=== PATIENT | female | born 1970 | race Native Hawaiian/Other Pacific Islander ===

== ENCOUNTER 2018-11-23 11:33 | Emergency (ER) | payer BC, MEDICARE ==
--- NOTE | 2018-11-23 11:50 | Emergency Department Report ---
Blank Doc - Documentation Documentation: This is a 48-year-old female that presents with acute on chronic intermittent lower back pain. Denies any injuries. This initial assessment/diagnostic orders/clinical plan/treatment(s) is/are subject to change based on patient's health status, clinical progression and re-assessment by fellow clinical providers in the ED. Further treatment and workup at subsequent clinical providers discretion. Patient/guardians urged not to elope from the ED as their condition may be serious if not clinically assessed and managed. Initial orders include: 1- Patient sent to [facility] for further evaluation and treatment 2- Xray
--- NOTE | 2018-11-23 12:26 | XRay Report ---
AP AND LATERAL LUMBOSACRAL SPINE: History: Low back pain. The vertebral bodies are well mineralized and normal in alignment and vertebral height with well preserved interspace distances. The visualized portions of the posterior elements are normal. IMPRESSION: Lumbar spine within normal limits.
[2018-11-23] MEDS ORDERED: TORADOL IM ONE (12:30)
[2018-11-23] MEDS ORDERED: CATAPRES PO ONE (12:39)
--- NOTE | 2018-11-23 12:41 | Emergency Department Report ---
ED Back Pain/Injury HPI - General Chief Complaint: Back Pain/Injury Stated Complaint: BACK PAIN Time Seen by Provider: 11/23/18 11:48 Source: patient Limitations: No Limitations - History of Present Illness Initial Comments: Patient is a 48-year-old females who has a past medical history of CVA and Crohn's disease who is presenting with 1 week of right lower back pain. Patient states this shocking sensation that is very sharp and sometimes radiates down through her right hip and buttock to the right lower extremity. Patient denies any trauma or heavy lifting that she can think of. Patient also states has been no focal neurological deficits as far as weakness or numbness she denies any chest pain shortness of breath fevers chills nausea vomiting. Patient has no bowel or bladder dysfunction. Patient states the pain is 8 out of 10 in severity is worse with movement. Patient states she saw orthopedic doctor today and was sent to the emergency department because of the history of stroke. - Related Data Previous Rx's Medication Instructions Recorded Last Taken Type Ketorolac [Toradol] 10 mg PO Q6H PRN #12 tablet 11/23/18 Unknown Rx methOCARBAMOL [Robaxin TAB] 500 mg PO Q6H PRN #14 tablet 11/23/18 Unknown Rx traMADol [Ultram] 50 mg PO Q6HR PRN #12 tablet 11/23/18 Unknown Rx Allergies Allergy/AdvReac Type Severity Reaction Status Date / Time No Known Allergies Allergy Unverified 11/23/18 11:44 ED Review of Systems ROS: Stated complaint: BACK PAIN Other details as noted in HPI Comment: All other systems reviewed and negative ED Past Medical Hx - Past Medical History Chron's ED Back Pain Physical Exam - Exam General: Vital signs noted. No distress. Alert and acting appropriately. Back/Abdomen: Yes Perilumbar Tenderness (right sided), Yes Sacroiliac Tenderness, No Abdominal Tenderness, No Perithoracic Tenderness, No Flank Tenderness, No Straight Leg Raise Pain Neuro: Yes Normal Sensation, Yes Normal DTR's, Yes Normal Gait, No Motor Weakness ED Course Vital Signs 11/23/18 11:48 Temperature 98.3 F Pulse Rate 103 H Respiratory 18 Rate Blood Pressure 175/133 O2 Sat by Pulse 97 Oximetry ED Medical Decision Making - Medical Decision Making Patient with very classic sciatica symptoms. Patient sent in because her blood pressure was elevated at the orthopedic physician. Patient has no evidence of any end organ damage his chest pain free and has no shortness of breath or focal neurological deficits. Patient's blood pressure likely elevated secondary to pain. Patient does have a history of hypertension. Patient was given this for symptomatically relief as well as 0.1 of Catap[place] and the patient will be discharged home. Critical care attestation.: If time is entered above; I have spent that time in minutes in the direct care of this critically ill patient, excluding procedure time. ED Disposition Clinical Impression: Hypertensive urgency Sciatica Qualifiers: Laterality: right Qualified Code(s): M54.31 - Sciatica, right side Disposition: DC-01 TO HOME OR SELFCARE Is pt being admited?: No Does the pt Need Aspirin: No Condition: Stable Instructions: Lumbar Radiculopathy (ED), Hypertension (ED) Referrals: GAUTAM CAMILO MD [Primary Care Provider] - 3-5 Days LUIS ENRIQUE BARCENAS MD [Staff Physician] - 3-5 Days Time of Disposition: 12:41
[2018-11-23 13:37] VITALS: BP 177/116
== END 2018-11-23 13:38 | disposition home or self-care (01) ==
LOC: ED 11:33
DX: I16.0 Hypertensive urgency (principal); M54.41 Lumbago with sciatica, right side
CPT/HCPCS: 72100; 96372; 99283; J1885

== ENCOUNTER 2021-02-05 09:20 | Emergency (ER) | payer BC, MEDICARE ==
[2021-02-05] MEDS ORDERED: diphenhydrAMINE 25 MG CAP PO ONE (10:38)
[2021-02-05] MEDS ORDERED: METOCLOPRAMIDE 10 MG TAB PO ONE (10:38)
[2021-02-05] MEDS ORDERED: BUTALB/ACETAMINOPHEN/CAFFEINE TAB PO ONE (10:38)
[2021-02-05] MEDS ORDERED: CYCLOBENZAPRINE 10 MG TAB PO ONE (10:41)
--- NOTE | 2021-02-05 10:46 | Emergency Department Report ---
ED Headache HPI - General Chief Complaint: Headache Stated Complaint: PAIN IN BACK OF HEAD AND LEFT EAR Time Seen by Provider: 02/05/21 10:38 - History of Present Illness Initial Comments: Patient is a 50-year-old female presents emergency room complaints of left-sided neck pain for approximately 12 days. she states that the neck pain is causing her to have a headache. 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 She denies any fall or injury. She states that she has pain with rotation of the neck. She denies any pain with flexion or extension and denies any neck stiffness. Patient states that she tried taking Tylenol and doing ice pack and heating pad without much relief. She denies any fever, vision changes, numbness, weakness, speech disturbance, gait disturbance. Past medical history of ulcerative colitis and GERD. She reports that she has an allergy to penicillin. Allergies/Adverse Reactions: Allergies No Known Allergies Allergy (Verified 02/05/21 09:45) Home Medications: Ambulatory Orders Ketorolac [Toradol] 10 mg PO Q6H PRN #12 tablet 11/23/18 methOCARBAMOL [Robaxin TAB] 500 mg PO Q6H PRN #14 tablet 11/23/18 traMADoL [Ultram] 50 mg PO Q6HR PRN #12 tablet 11/23/18 Acetaminophen/Codeine [Tylenol /Codeine # 3 tab] 1 tab PO Q6H PRN #12 tab 02/05/21 Menthol/Camphor [[place] Ointment] 1 applicatio TP BID #18 oint...g. 02/05/21 methOCARBAMOL [Robaxin TAB] 500 mg PO BID PRN #20 tab 02/05/21 ED Review of Systems ROS: Stated complaint: PAIN IN BACK OF HEAD AND LEFT EAR Other details as noted in HPI Comment: All other systems reviewed and negative ED Past Medical Hx - Past Medical History Hx CVA: Yes Additional medical history: Chron's /UC - Surgical History Additional Surgical History: jaw BALLON TO ARTERY - Social History Smoking Status: Never Smoker Substance Use Type: None - Medications Home Medications: Home Medications Medication Instructions Recorded Confirmed Last Taken Type Ketorolac [Toradol] 10 mg PO Q6H PRN #12 tablet 11/23/18 Unknown Rx methOCARBAMOL [Robaxin TAB] 500 mg PO Q6H PRN #14 tablet 11/23/18 Unknown Rx traMADoL [Ultram] 50 mg PO Q6HR PRN #12 tablet 11/23/18 Unknown Rx Acetaminophen/Codeine [Tylenol 1 tab PO Q6H PRN #12 tab 02/05/21 Unknown Rx /Codeine # 3 tab] Menthol/Camphor [[place] 1 applicatio TP BID #18 oint...g. 02/05/21 Unknown Rx Ointment] methOCARBAMOL [Robaxin TAB] 500 mg PO BID PRN #20 tab 02/05/21 Unknown Rx ED Physical Exam - General Limitations: No Limitations General appearance: alert, in no apparent distress - Head Head exam: Present: atraumatic, normocephalic - Eye Eye exam: Present: normal appearance, PERRL, EOMI. Absent: conjunctival injection, nystagmus, periorbital swelling, periorbital tenderness Pupils: Present: normal accommodation - ENT ENT exam: Present: mucous membranes moist - Neck Neck exam: Present: normal inspection, tenderness (left sided paraspinal C-spine ttp, no step offs, no deformities, no skin changes ), full ROM. Absent: meningismus - Respiratory Respiratory exam: Present: normal lung sounds bilaterally. Absent: respiratory distress, wheezes, rales, rhonchi, stridor, chest wall tenderness, accessory muscle use, decreased breath sounds, prolonged expiratory - Cardiovascular Cardiovascular Exam: Present: regular rate, normal rhythm, normal heart sounds. Absent: systolic murmur, diastolic murmur, rubs, gallop - Back Exam Back exam: Present: normal inspection, full ROM. Absent: paraspinal tenderness, vertebral tenderness - Neurological Exam Neurological exam: Present: alert, oriented X3, CN II-XII intact, normal gait. Absent: motor sensory deficit - Psychiatric Psychiatric exam: Present: normal affect, normal mood - Skin Skin exam: Present: warm, dry, intact ED Course Vital Signs 02/05/21 02/05/21 02/05/21 09:44 09:45 13:53 Temperature 98 F 97.8 F Pulse Rate 88 74 Respiratory 20 16 Rate Blood Pressure 115/73 Blood Pressure 113/76 [Left] O2 Sat by Pulse 96 100 Oximetry ED Medical Decision Making - Lab Data Vital Signs 08/25/21 08/25/21 08/25/21 09:44 09:45 13:53 Temperature 98 F 97.8 F Pulse Rate 88 74 Respiratory 20 16 Rate Blood Pressure 115/73 Blood Pressure 113/76 [Left] O2 Sat by Pulse 96 100 Oximetry - Medical Decision Making Patient is a 50-year-old female presents emergency room complaints of left-sided neck pain for approximately 12 days. she states that the neck pain is causing her to have a headache. 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 She denies any fall or injury. She states that she has pain with rotation of the neck. She denies any pain with flexion or extension and denies any neck stiffness. Patient states that she tried taking Tylenol and doing ice pack and heating pad without much relief. She denies any fever, vision changes, numbness, weakness, speech disturbance, gait disturbance. Past medical history of ulcerative colitis and GERD. She reports that she has an allergy to penicillin. Vitals are normal. On exam:left sided paraspinal C- spine ttp, no step offs, no deformities, no skin changes, no meningeal signs, no neuro deficits. Symptoms likely related to cervical radiculopathy versus muscle strain causing tension headache. Patient given medications while in the emergency department with improvement of her symptoms as she states that she has someone to drive her home. Patient given prescription for medications. Advised patient Please take medication as prescribed as needed. Do not drive or operate heavy machinery while taking severe pain medication or muscle relaxer. May use ice pack, heating pad, rest, salt bath. Do not use heat or ice while using [place] balm. Follow-up with a primary care doctor. Follow-up with orthopedic/spine doctor. Return to emergency room for any new or worsening symptoms. Critical care attestation.: If time is entered above; I have spent that time in minutes in the direct care of this critically ill patient, excluding procedure time. ED Disposition Clinical Impression: Neck pain on left side Headache Qualifiers: Headache type: unspecified Headache chronicity pattern: acute headache Intrac tability: not intractable Qualified Code(s): R51.9 - Headache, unspecified Disposition: 01 HOME / SELF CARE / HOMELESS Is pt being admited?: No Does the pt Need Aspirin: No Condition: Stable Instructions: Cervical Radiculopathy, Tension Headache, Adult Additional Instructions: Please take medication as prescribed as needed. Do not drive or operate heavy machinery while taking severe pain medication or muscle relaxer. May use ice pack, heating pad, rest, salt bath. Do not use heat or ice while using [place] balm. Follow-up with a primary care doctor. Follow-up with orthopedic/spine doctor. Return to emergency room for any new or worsening symptoms. Prescriptions: methOCARBAMOL [Robaxin TAB] 500 mg PO BID PRN #20 tab PRN Reason: muscle spasm/pain Menthol/Camphor [[place] Ointment] 1 applicatio TP BID #18 oint...g. Acetaminophen/Codeine [Tylenol /Codeine # 3 tab] 1 tab PO Q6H PRN #12 tab PRN Reason: Pain , Severe (7-10) Referrals: PRIMARY CAREMD [Primary Care Provider] - 2-3 Days GAUTAM CAMILO MD [Staff Physician] - 2-3 Days SAUL FIGUEROA MD [Staff Physician] - 2-3 Days [facility] [Provider Group] - 2-3 Days MARITA LEON II, MD [Staff Physician] - 2-3 Days Time of Disposition: 13:42 Print Language: BELARUSIAN
[2021-02-05] MEDS ORDERED: KETOROLAC 60 MG/2 ML INJ IM ONE (12:04)
[2021-02-05] MEDS ORDERED: dexAMETHasone 20 MG/5 ML VIAL IM ONE (12:04)
[2021-02-05 13:54] VITALS: BP 113/76
== END 2021-02-05 13:54 | disposition home or self-care (01) ==
LOC: ED 09:20
DX: M54.2 Cervicalgia (principal); R51.9 Headache, unspecified
CPT/HCPCS: 96372; 99282; J1100; J1885

== ENCOUNTER 2021-11-05 09:46 | Emergency (ER) | payer BC, MEDICARE ==
--- NOTE | 2021-11-05 12:46 | Emergency Department Report ---
ED General Adult HPI - General Chief complaint: High BP Stated complaint: HBP PUI?: No Time Seen by Provider: 11/05/21 11:56 Source: patient Mode of arrival: Ambulatory Limitations: No Limitations - History of Present Illness Initial comments: Patient is a 51-year-old female that comes to the emergency room after having an episode at work where she said she felt funny and they checked her blood pressure and it was elevated. She took her lisinopril this morning. On arrival to the ER her blood pressure has returned to normal. She denies any trauma or hitting her head. She is ambulatory, nontoxic [id number] on arrival to fast track. She states the incident just scared her for she never had anything like this before. She denies any chest pain or shortness of breath. Denies any abdominal pain nausea vomiting or diarrhea. -: Sudden, hour(s) Worsens with: none Associated Symptoms: denies other symptoms Treatments Prior to Arrival: none - Related Data Allergies Allergy/AdvReac Type Severity Reaction Status Date / Time No Known Allergies Allergy Verified 02/05/21 09:45 ED Review of Systems ROS: Stated complaint: HBP Other details as noted in HPI Comment: All other systems reviewed and negative ED Past Medical Hx - Past Medical History Previous Medical History?: Yes Hx CVA: Yes Additional medical history: Chron's /UC - Surgical History Past Surgical History?: Yes Additional Surgical History: jaw BALLON TO ARTERY - Family History Family history: no significant - Social History Smoking Status: Never Smoker Substance Use Type: None ED Physical Exam - General Limitations: No Limitations General appearance: alert, in no apparent distress - Head Head exam: Present: atraumatic, normocephalic - Eye Eye exam: Present: normal appearance - ENT ENT exam: Present: mucous membranes moist - Neck Neck exam: Present: normal inspection - Respiratory Respiratory exam: Present: normal lung sounds bilaterally. Absent: respiratory distress - Cardiovascular Cardiovascular Exam: Present: regular rate, normal rhythm. Absent: systolic murmur, diastolic murmur, rubs, gallop - GI/Abdominal GI/Abdominal exam: Present: soft, normal bowel sounds - Extremities Exam Extremities exam: Present: normal inspection - Back Exam Back exam: Present: normal inspection - Neurological Exam Neurological exam: Present: alert, oriented X3 - Psychiatric Psychiatric exam: Present: normal affect, normal mood - Skin Skin exam: Present: warm, dry, intact, normal color. Absent: rash ED Course Vital Signs 11/05/21 11:55 Temperature 98.0 F Pulse Rate 69 Respiratory 18 Rate Blood Pressure 149/98 O2 Sat by Pulse 100 Oximetry ED Medical Decision Making - Radiology Data Radiology results: report reviewed, image reviewed Normal - Medical Decision Making Vital Signs 11/05/21 11/05/21 11:55 12:47 Temperature 98.0 F 98.8 F Pulse Rate 69 79 Respiratory 18 20 Rate Blood Pressure 149/98 Blood Pressure 158/98 [Right] O2 Sat by Pulse 100 100 Oximetry Index of suspicion for intracranial event was low. CT conducted at the patient's insistence. CT of the head negative. Patient being discharged home with discharge plan of care including diet, activities, medications and follow- up. She verbalizes understanding plan of care. On discharge exam patient is ambulatory with no focal deficit. Cranial nerves intact. She is taking p.o. Patient discharged home with discharge plan of care including diet, activity, medications and follow-up. She verbalizes understanding of plan of care - Differential Diagnosis Rule out Critical care attestation.: If time is entered above; I have spent that time in minutes in the direct care of this critically ill patient, excluding procedure time. ED Disposition Clinical Impression: Chronic hypertension Disposition: 01 HOME / SELF CARE / HOMELESS Is pt being admited?: No Does the pt Need Aspirin: No Condition: Stable Instructions: Preventing Hypertension, Hypertension (ED) Additional Instructions: Stay well-hydrated with water Low-sodium low-fat diet Continue your home medications Motrin or Tylenol for pain Avoid alcohol or drugs Follow-up with PCP, he may do additional testing given your issues today. Have given you referral below Continue to monitor your blood pressure Referrals: GAUTAM CAMILO MD [Staff Physician] - 3-5 Days Forms: Work/School Release Form(ED) Time of Disposition: 12:46
--- NOTE | 2021-11-05 12:46 | Cat Scan Report ---
CT head/brain wo con INDICATION: dizzy with inc bp this am. TECHNIQUE: Routine CT head without contrast. All CT scans at this location are performed using CT dos e reduction for ALARA by means of automated exposure control. COMPARISON: None. FINDINGS: BRAIN / INTRACRANIAL CONTENTS: No acute hemorrhage, mass effect, midline shift, or hydrocephalus. No appreciable acute large territorial or lacunar infarct. No chronic infarct or focal atrophy. Normal b rain volume and ventricular/sulcal size for age. ORBITS: No significant abnormality of visualized orbits. SINUSES / MASTOIDS: No significant abnormality of visualized sinuses and mastoid air cells. ADDITIONAL FINDINGS: None. IMPRESSION: 1. No acute intracranial abnormality. Signer Name: Khoi Xie MD Signed: 11/05/2021 12:41 PM Workstation Name: [id number]
[2021-11-05 12:51] VITALS: BP 158/98
== END 2021-11-05 13:11 | disposition home or self-care (01) ==
LOC: ED 09:46
DX: I10 Essential (primary) hypertension (principal); R42 Dizziness and giddiness; Z86.73 Personal history of transient ischemic attack (TIA), and cerebral infarction without residual deficits; Z98.890 Other specified postprocedural states
CPT/HCPCS: 70450; 99283

== ENCOUNTER 2022-01-19 07:11 | Emergency (ER) | payer MEDICARE ==
--- NOTE | 2022-01-19 07:27 | Emergency Department Report ---
Stated Complaint: FRANCHESCA, COUGH - HPI History of Present Illness: 51 F HX HTN, [place] 5 days cough, chills, sweats , chest discomfort. SOB - ROS Review of Systems: Cough nonproductive Shortness of breath Chest discomfort due to cough Sweats chills fevers. - Exam Vital Signs: Vital Signs 01/19/22 07:20 Temperature 98.4 F Pulse Rate 99 H Respiratory 18 Rate Blood Pressure 147/73 [Right] O2 Sat by Pulse 100 Oximetry Physical Exam: No acute distress noted No respiratory distress noted. Patient is alert and oriented x4. Range of motion intact. Patient is ambulatory. MSE screening note: Focused history and physical exam performed. Due to findings the following was ordered: MSE complete. Orders to be placed. Patient to be seen by another provider in the back. Triage complete. ED Disposition for MSE Condition: Stable
--- NOTE | 2022-01-19 07:55 | XRay Report ---
XR chest 1V ap INDICATION / CLINICAL INFORMATION: SOB. COMPARISON: None available. FINDINGS: SUPPORT DEVICES: None. HEART /PULMONARY VASCULATURE: No significant abnormality. LUNGS / PLEURA: No significant pulmonary or pleural abnormality. No pneumothorax. ADDITIONAL FINDINGS: No significant additional findings. IMPRESSION: 1. No acute findings. Signer Name: Sincere Lange MD Signed: 01/19/2022 7:51 AM Workstation Name: [id number]
[2022-01-19] MEDS ORDERED: BENZONATATE 100 MG CAP PO ONE (10:29)
--- NOTE | 2022-01-19 11:01 | Emergency Department Report ---
- General Chief Complaint: Upper Respiratory Infection Stated Complaint: FRANCHESCA, COUGH Time Seen by Provider: 01/19/22 10:15 Source: patient Mode of arrival: Ambulatory Limitations: No Limitations - History of Present Illness Initial Comments: This is a 51-year-old female nontoxic, well nourished in appearance, no acute signs of distress presents to the ED with c/o of productive cough, subjective fever, chills, body aches, rhinorrhea, nasal congestion x several days. Patient describes productive cough as yellow mucus production. Patient agrees to sick contact with co-workers which has the COVID. Denies being COVID vaccines. Patient denies any recent travels, long car, recent hospital stays. Patient denies any calf pain or calf tenderness. Patient denies any chest pain, short of breath, nausea, vomiting, hemoptysis, numbness, tingling, headache or stiff neck. MD Complaint: fever, cough, rhinorrhea, nasal congestion -: days(s) Severity: mild Severity scale (0 -10): 3 Quality: aching Consistency: constant Improves With: nothing Worsens With: nothing Associated Symptoms: rhinorrhea, nasal congestion, cough. denies: fever, chills, myalgias, diaphoresis, headache, sore throat, stiff neck, chest pain, shortness of breath, abdominal pain, nausea, vomiting, diarrhea, dysuria, rash, confusion, right sweats, weight loss, epistaxis, hoarseness, ear pain Treatments Prior to Arrival: none - Related Data Previous Rx's Medication Instructions Recorded Last Taken Type Benzonatate [Tessalon Perles] 100 mg PO Q12H PRN #12 cap 01/19/22 Unknown Rx Allergies Allergy/AdvReac Type Severity Reaction Status Date / Time Penicillins Allergy Unknown Verified 01/19/22 07:23 ED Review of Systems ROS: Stated complaint: FRANCHESCA, COUGH Other details as noted in HPI Comment: All other systems reviewed and negative Constitutional: chills, fever Eyes: denies: eye pain, eye discharge, vision change ENT: congestion. denies: ear pain, throat pain, dental pain, hearing loss, epistaxis Respiratory: cough. denies: shortness of breath, wheezing Cardiovascular: denies: chest pain, palpitations Endocrine: no symptoms reported Gastrointestinal: denies: abdominal pain, nausea, diarrhea Genitourinary: denies: urgency, dysuria, discharge Musculoskeletal: denies: back pain, joint swelling, arthralgia Skin: denies: rash, lesions Neurological: denies: headache, weakness, paresthesias Psychiatric: denies: anxiety, depression Hematological/Lymphatic: denies: easy bleeding, easy bruising ED Past Medical Hx - Past Medical History Hx CVA: Yes Additional medical history: Chron's /UC - Surgical History Additional Surgical History: jaw BALLON TO ARTERY - Social History Smoking Status: Current Every Day Smoker Substance Use Type: Marijuana - Medications Home Medications: Home Medications Medication Instructions Recorded Confirmed Last Taken Type Benzonatate [Tessalon Perles] 100 mg PO Q12H PRN #12 cap 01/19/22 Unknown Rx ED Physical Exam - General Limitations: No Limitations General appearance: alert, in no apparent distress - Head Head exam: Present: atraumatic, normocephalic - Eye Eye exam: Present: normal appearance - ENT ENT exam: Present: normal exam, normal orophraynx - Neck Neck exam: Present: normal inspection, full ROM. Absent: tenderness, meningismus, lymphadenopathy - Respiratory Respiratory exam: Present: normal lung sounds bilaterally. Absent: respiratory distress, wheezes, rales, rhonchi, stridor, chest wall tenderness, accessory muscle use, decreased breath sounds, prolonged expiratory - Cardiovascular Cardiovascular Exam: Present: regular rate, normal rhythm, normal heart sounds. Absent: bradycardia, tachycardia, irregular rhythm, systolic murmur, diastolic murmur, rubs, gallop - GI/Abdominal GI/Abdominal exam: Present: soft, normal bowel sounds. Absent: distended, tenderness, guarding, rebound, rigid, diminished bowel sounds - Extremities Exam Extremities exam: Present: full ROM - Back Exam Back exam: Present: full ROM - Neurological Exam Neurological exam: Present: alert, oriented X3, normal gait - Psychiatric Psychiatric exam: Present: normal affect, normal mood - Skin Skin exam: Present: warm, dry, intact, normal color. Absent: rash ED Course Vital Signs 01/19/22 01/19/22 07:20 09:30 Temperature 98.4 F 98.2 F Pulse Rate 99 H 66 Respiratory 18 18 Rate Blood Pressure 123/78 Blood Pressure 147/73 [Right] O2 Sat by Pulse 100 100 Oximetry - Reevaluation(s) Reevaluation #1: 01/19/22 10:59 Patient is speaking in full sentences with no signs of distress noted. ED Medical Decision Making - Radiology Data [facility] [address] [place] [address] XRay Report Signed Patient: JOSIE HAYS MR#: [id number] : 1970 Acct:[id number] Age/Sex: 51 / F ADM Date: 01/19/22 Loc: ED Attending Dr: Ordering Physician: RALF MARSHALL NP Date of Service: 01/19/22 Procedure(s): XR chest 1V ap Accession Number(s): [id number] cc: RALF MARSHALL NP Fluoro Time In Minutes: XR chest 1V ap INDICATION / CLINICAL INFORMATION: SOB. COMPARISON: None available. FINDINGS: SUPPORT DEVICES: None. HEART /PULMONARY VASCULATURE: No significant abnormality. LUNGS / PLEURA: No significant pulmonary or pleural abnormality. No pneumothorax. ADDITIONAL FINDINGS: No significant additional findings. IMPRESSION: 1. No acute findings. Signer Name: Jessica Lange MD Signed: 01/19/2022 7:51 AM Workstation Name: [id number] Transcribed By: SHIRA Dictated By: JESSICA LANGE MD Electronically Authenticated By: JESSICA LANGE MD Signed Date/Time: 01/19/22750 DD/ 9 TD/TT: Critical care attestation.: If time is entered above; I have spent that time in minutes in the direct care of this critically ill patient, excluding procedure time. ED Disposition Clinical Impression: Suspected COVID-19 virus infection Disposition: HOME / SELF CARE / HOMELESS Is pt being admited?: No Does the pt Need Aspirin: No Condition: Stable Instructions: COVID-19 Frequently Asked Questions, COVID-19 Additional Instructions: Follow-up with a primary care doctor in 3-5 days or if symptoms worsen and continue return to emergency room as soon as possible. Your symptoms appear most consistent with a nonspecific viral syndrome. However, given this current pandemic, COVID-19 is in the differential of possibilities. Despite your previous negative COVID-19 test, I do recommend repeat outpatient Covid 19 testing. In the meantime, isolate/quarantine yourself and stay away from anyone who is elderly, immunocompromised or chronically ill. Please see your nearest health department or primary care doctor that you are referred to for COVID testing. Increased rest, hydration, and take [id number] Tylenol as directed from instructions label for pain/fever episode. Prescriptions: Benzonatate [Tessalon Perles] 100 mg PO Q12H PRN #12 cap PRN Reason: Cough Referrals: PRIMARY CAREMD [Primary Care Provider] - 3-5 Days GAUTAM CAMILO MD [Staff Physician] - 3-5 Days Time of Disposition: 11:01
[2022-01-19 11:27] VITALS: BP 138/96
== END 2022-01-19 11:27 | disposition home or self-care (01) ==
LOC: ED 07:11
DX: R05.9 Cough, unspecified (principal); R50.9 Fever, unspecified; Z20.822 Contact with and (suspected) exposure to COVID-19; M79.18 Myalgia, other site
CPT/HCPCS: 71045; 99283